=== PATIENT | female | born 1970 | race Caucasian/White ===

== ENCOUNTER 2024-03-12 09:00 | Outpatient (CLI) | payer BC, SELFPAY ==
--- OUTSIDE RECORDS SUMMARY | 2024-03-12 09:06 | XMS_ITS | Patient Health Record ---
Author Organization [facility] Address [address] [place], [place] [address] Care Team Providers Care Molder Bench Name Role Phone None, No PCP Primary Care Provider Unavailabl e Sandy Ring Unavailable [phone] Guerita Will Unavailable [phone] Eleuterio Delgado Unavailable [phone] Allergies No Known Allergies Results Component Value Reference Range Notes Test, Urine Reviewed date:01/04/2024 01:09:07 PM Interpretation: Performing Lab: Notes/Report: Test, Urine negative Negative - TESTOSTERONE, TOTAL, LC/MS/M S Reviewed date:12/25/2023 02:52:16 PM Interpretation: Performing Lab:Keira [facility]-[address] [place] [address], [address] HospitalZzdp[facility]qxjIM[address] Chepe Baron MD,PhD Notes/Report: 0; 0; 0 TESTOSTERONE, TOTAL, MS 162 2-45 ng/dL For additional information, please refer to https://education.[employer]iz[employer].com/faq/TotalTestosteroneLC MSMS (This link is being provided for informational/educational purposes only.) (Note) This test was developed and its analytical performance characteristics have been determined by [facility]. It has not been cleared or approved by the FDA. This assay has been validated pursuant to the CLIA regulations and is used for clinical purposes. F med fusion [address] [address],[address] [facility] [address] hCepe Baron MD, PhD [facility] Reviewed date:12/25/2023 02:52:16 PM Interpretation: Performing Lab:JERAMIE [facility] [id number], [place] HassanArfuCM[address] Anthony Hernandez Notes/Report: 0; 0; 0 FSH 7.1 Reference Range Follicular Phase 2.5-10.2 Mid-cycle Peak 3.1-17.7 Luteal Phase 1.5- 9.1 Postmenopausal 23.0-116.3 ESTRADIOL Reviewed date:12/25/2023 02:52:15 PM Interpretation: Performing Lab:JERAMIE [facility], [place]ht[place] HernandezMpefSS[address] Anthony Hernandez Notes/Report: 0; 0; 0 ESTRADIOL 104 Reference Range Follicular Phase: 19-144 Mid-Cycle: 64-357 Luteal Phase: 56-214 Postmenopausal: < or = 31 Reference range established on post-pubertal patient population. No pre-pubertal reference range established using this assay. For any patients for whom low Estradiol levels are anticipated (e.g. males, pre-pubertal children and hypogonadal/post-menopausal females), the [employer] Estradiol, Ultrasensitive, LCMSMS assay is recommended (order code 46382). Please note: patients being treated with the drug fulvestrant (Faslodex(R)) have demonstrated significant interference in immunoassay methods for estradiol measurement. The cross reactivity could lead to falsely elevated estradiol test results leading to an inappropriate clinical assessment of estrogen status. [facility] order code [id number], Ultrasensitive LC/MS/MS demonstrates negligible cross reactivity with fulvestrant. Test, Urine Reviewed date:10/17/2023 01:49:15 PM Interpretation: Performing Lab: Notes/Report: Test, Urine Negative Negative - TESTOSTERONE, TOTAL, LC/MS/M S Reviewed date:10/16/2023 08:29:03 AM Interpretation: Performing Lab:Z3E, [facility] [address], [address], FuwbgybknxYT[address] Lc Perdomo MD Notes/Report: 0; 0; 0 TESTOSTERONE, TOTAL, MS 65 2-45 ng/dL For additional information, please refer to https://education.Citizinvest[employer].com/faq/TotalTestosteroneLC MSMS (This link is being provided for informational/educational purposes only.) (Note) This test was developed and its analytical performance characteristics have been determined by [facility]. It has not been cleared or approved by the FDA. This assay has been validated pursuant to the CLIA regulations and is used for clinical purposes. EVELIA med fusion [address] [facility] [place] [address],[address] [facility] [address] Lc Perdomo MD FSH Reviewed date:10/16/2023 08:29:03 AM Interpretation: Performing Lab:JERAMIE [employer], [place] HernandezLsddAM[address] Anthony Hernandez Notes/Report: 0; 0; 0 FSH 13.1 Reference Range Follicular Phase 2.5-10.2 Mid-cycle Peak 3.1-17.7 Luteal Phase 1.5- 9.1 Postmenopausal 23.0-116.3 ESTRADIOL Reviewed date:10/16/2023 08:29:02 AM Interpretation: Performing Lab:JERAIME [employer] [facility], [place]htaq HernandezYekbGU[address] Anthony Hernandez Notes/Report: 0; 0; 0 ESTRADIOL 52 Reference Range Follicular Phase: 19-144 Mid-Cycle: 64-357 Luteal Phase: 56-214 Postmenopausal: < or = 31 Reference range established on post-pubertal patient population. No pre-pubertal reference range established using this assay. For any patients for whom low Estradiol levels are anticipated (e.g. males, pre-pubertal children and hypogonadal/post-menopausal females), the [facility] Estradiol, Ultrasensitive, LCMSMS assay is recommended (order code 10926). Please note: patients being treated with the drug fulvestrant (Faslodex(R)) have demonstrated significant interference in immunoassay methods for estradiol measurement. The cross reactivity could lead to falsely elevated estradiol test results leading to an inappropriate clinical assessment of estrogen status. [facility] order code [id number], Ultrasensitive LC/MS/MS demonstrates negligible cross reactivity with fulvestrant. Test, Urine Reviewed date:06/20/2023 12:09:42 PM Interpretation: Performing Lab: Notes/Report: Test, Urine Negative Negative - TESTOSTERONE, TOTAL, LC/MS/M S Reviewed date:06/16/2023 02:09:37 PM Interpretation: Performing Lab:Ramesh [facility]-[address] [facility] [address], [address], RtjlgpyqbbXB[address] Lc Perdomo MD Notes/Report: 0; 0; 0 TESTOSTERONE, TOTAL, MS 136 2-45 ng/dL For additional information, please refer to https://education.Citizinvestor.com/faq/TotalTestosteroneLC MSMS (This link is being provided for informational/educational purposes only.) (Note) This test was developed and its analytical performance characteristics have been determined by [facility]. It has not been cleared or approved by the FDA. This assay has been validated pursuant to the CLIA regulations and is used for clinical purposes. F med fusion [address] [address],[address] [facility] [address] Lc Perdomo MD FSH Reviewed date:06/15/2023 07:17:01 AM Interpretation: Performing Lab:Ghazala [facility]-[address], [place] IfwvHC[address] Anthony Hernandez Notes/Report: 0; 0; 0 FSH 19.0 Reference Range Follicular Phase 2.5-10.2 Mid-cycle Peak 3.1-17.7 Luteal Phase 1.5- 9.1 Postmenopausal 23.0-116.3 ESTRADIOL Reviewed date:06/15/2023 07:17:01 AM Interpretation: Performing Lab:Ghazala [facility], [place] FqhvKV[address] Anthony Hernandez Notes/Report: 0; 0; 0 ESTRADIOL 66 Reference Range Follicular Phase: 19-144 Mid-Cycle: 64-357 Luteal Phase: 56-214 Postmenopausal: < or = 31 Reference range established on post-pubertal patient population. No pre-pubertal reference range established using this assay. For any patients for whom low Estradiol levels are anticipated (e.g. males, pre-pubertal children and hypogonadal/post-menopausal females), the [facility] Estradiol, Ultrasensitive, LCMSMS assay is recommended (order code [id number]). Please note: patients being treated with the drug fulvestrant (Faslodex(R)) have demonstrated significant interference in immunoassay methods for estradiol measurement. The cross reactivity could lead to falsely elevated estradiol test results leading to an inappropriate clinical assessment of estrogen status. [facility] order code [id number], Ultrasensitive LC/MS/MS demonstrates negligible cross reactivity with fulvestrant. Test, Urine Reviewed date:03/28/2023 11:35:42 AM Interpretation:Negative Performing Lab: Notes/Report: Negative Test, Urine Negative Negative - TESTOSTERONE, TOTAL, LC/MS/M S Reviewed date:03/30/2023 12:46:22 PM Interpretation: Performing Lab:Z3E, [facility]-[address] [address], [address] [facility] HospitalYixsbczojcZC[address] Jerrod Souza MD Notes/Report: TESTOSTERONE, TOTAL, MS 139 2-45 ng/dL For additional information, please refer to https://education.[employer]arma/faq/TotalTestosteroneLC MSMS (This link is being provided for informational/educational purposes only.) (Note) This test was developed and its analytical performance characteristics have been determined by [facility]. It has not been cleared or approved by the FDA. This assay has been validated pursuant to the CLIA regulations and is used for clinical purposes. [facility] med fusion [address] [address],[address] [facility] [address] Jerrod Souza MD FSH Reviewed date:03/22/2023 09:18:15 AM Interpretation: Performing Lab:Gh[facility]ala [facility], [place] HassanGgxfLG[address] Anthony Hernandez Notes/Report: FSH 43.0 Reference Range Follicular Phase 2.5-10.2 Mid-cycle Peak 3.1-17.7 Luteal Phase 1.5- 9.1 Postmenopausal 23.0-116.3 ESTRADIOL Reviewed date:03/22/2023 09:18:15 AM Interpretation: Performing Lab:Ghazala [facility], [place] HernandezWmrsID[address] Anthony Hernandez Notes/Report: ESTRADIOL 29 Reference Range Follicular Phase: 19-144 Mid-Cycle: 64-357 Luteal Phase: 56-214 Postmenopausal: < or = 31 Reference range established on post-pubertal patient population. No pre-pubertal reference range established using this assay. For any patients for whom low Estradiol levels are anticipated (e.g. males, pre-pubertal children and hypogonadal/post-menopausal females), the [facility] Estradiol, Ultrasensitive, LCMSMS assay is recommended (order code [id number]). Please note: patients being treated with the drug fulvestrant (Faslodex(R)) have demonstrated significant interference in immunoassay methods for estradiol measurement. The cross reactivity could lead to falsely elevated estradiol test results leading to an inappropriate clinical assessment of estrogen status. [facility] order code [id number], Ultrasensitive LC/MS/MS demonstrates negligible cross reactivity with fulvestrant. Reason For Referral No Information Medications Medication SIG (Take, Route, Frequency, Duration) Notes Start Date End Date Status Vitamin B12 100 MCG as directed Orally Active Naltrexone 380 MG as directed Intramuscular Active Clobetasol Propionate 0.05 % 1 application Externally Twice a day Active Mupirocin Calcium 2 % 1 application Externally Twice a day Active Testosterone Pellets start 01/05/2023 Active Vitamin D 50 MCG (1999) 1 tablet Orally Once a day Active Magnesium 300 MG 1 capsule with a jose l Orally Once a day Active Mirena (52 MG) 20 MCG/DAY as directed Intrauterine 01/2018 Active Social History Tobacco Use: Social History Observation Description Date Details (start date - stop date) Never Smoker NA - NA Tobacco Use/Smoking Question Answer Notes Are you a nonsmoker Alcohol Screen (Audit-C) Question Answer Notes Did you have a drink contain ing alcohol in the past year? Yes How often did you have a dri nk containing alcohol in the past year? 2 to 3 times a week (3 points) How many drinks did you have on a typical day when you were drinking in the past year? 1 or 2 drinks (0 point) How often did you have 6 or more drinks on one occasion in the past year? Never (0 point) Points 3 Interpretation Positive Problems Problem Type SNOMED Code ICD Code Onset Dates Problem Status W/U Status Risk Notes Problem Menopause (087510381) Menopausal and female climacteric states (N95.1) Active confirmed Problem Menopausal and postmenopausal disorders (384274381) Unspecified menopausal and perimenopausal disorder (N95.9) Active confirmed Problem Menopausal and postmenopausal disorders (188566412) Menopausal and perimenopausal disorder (N95.9) Active confirmed Problem Menopausal and postmenopausal disorders (904429102) Menopausal and postmenopausal disorder (N95.9) Active confirmed Problem Encounter for pre-operative laboratory testing (Z01.812) Active confirmed Vital Signs Blood pressure diastolic 64 mm Hg 01/04/2024 Height 60.75 in 01/04/2024 Blood pressure systolic 92 mm Hg 01/04/2024 Weight 147 lbs 01/04/2024 BMI 28 kg/m2 01/04/2024 Encounters Encounter Location Date Provider Diagnosis [facility] [address] [place] [address] 03/21/[address] [facility] Menopausal and postmenopausal disorder N95.9 [facility] [address] [place] [address] 06/13/2023 Guerita Will Menopausal and perimenopausal disorder N95.9 [facility] [address] [place] [address] 10/11/2023 Eleuterio Delgado Menopausal and femal e climacteric states N95.1 [facility] [address] [place] [address] 12/21/2023 Eleuterio Delgado Menopausal and femal e climacteric states N95.[address] [address] 01/04/2024 Eleuterio Delgado Pre-procedural examination Z01.818 and Menopausal and perimenopausal disorder N95.[address] [address] 10/17/2023 Eleuterio Delgado Encounter for pre-operative laboratory testing Z01.812 and Menopausal and perimenopausal disorder N95.[address] [place], [place] [id number] 06/20/2023 Guerita Will Menopausal and femal e climacteric states N95.1 and Encounter for pre-operative laboratory testing Z01.[address] [address] 03/28/[address] [facility] Encounter for pre-operative laboratory testing Z01.812 and Unspecified menopausal and perimenopausal disorder N95.9 Assessments Encounter Date Diagnosis (ICD Code) Assessment Notes Treat ment Notes Treatment Clinical Notes 03/28/2023 Encounter for pre-operative laboratory testing (ICD-10 - Z01.812) 06/13/2023 Menopausal and perimenopausal disorder (ICD-10 - N95.9) 06/20/2023 Menopausal and femal e climacteric states (ICD-10 - N95.1) 06/20/2023 Encounter for pre-operative laboratory testing (ICD-10 - Z01.812) 10/11/2023 Menopausal and femal e climacteric states (ICD-10 - N95.1) 10/17/2023 Menopausal and perimenopausal disorder (ICD-10 - N95.9) 10/17/2023 Encounter for pre-operative laboratory testing (ICD-10 - Z01.812) 12/21/2023 Menopausal and femal e climacteric states (ICD-10 - N95.1) 01/04/2024 Menopausal and perimenopausal disorder (ICD-10 - N95.9) 01/04/2024 Pre-procedural examination (ICD-10 - Z01.818) 03/21/2023 Menopausal and postmenopausal disorder (ICD-10 - N95.9) 03/28/2023 Unspecified menopausal and perimenopausal disorder (ICD-10 - N95.9) Hormone pellets inserted today per patient desires and medical recommendation. After care and follow up instructions were reviewed with patient in great detail. Patient states that all questions have been answered to her satisfaction. 03/28/2023 Other Ice pack x20min, 5 times today Follow up: Labs week of 06/12/2023; Pellet insertion week of 06/19/2023. 06/20/2023 Other Hormone pellets inserted as documented above. Aftercare instructions reviewd in detail. RTC in 3 months for labs (E2, FSH, total testosterone) and 1 week later for repeat insertion. 10/17/2023 Other -HRT pellet inserted as documented above without complication -Post-insertion instructions reviewed. Printed handout with instructions given along with ice pack. Repeat ice to insertion site for 20 min. 3-5 times a day PRN for soreness at insertion site -Report any signs of infection or pellet expulsion -Repeat labs in 3 months (E2, FSH, total testosterone) with next insertion 1 week later -Follow up as needed before next insertion if any concerns 01/04/2024 Other -HRT pellet inserted as documented above without complication -Post-insertion instructions reviewed. Printed handout with instructions given along with ice pack. Repeat ice to insertion site for 20 min. 3-5 times a day PRN for soreness at insertion site -Report any signs of infection or pellet expulsion -Repeat labs in 3 months (E2, FSH, total testosterone) with next insertion 1 week later -Follow up as needed before next insertion if any concerns Plan Of Treatment Next Appt Details Provider Name:Eleuterio Delgado, 03/26/2024 01:15:00 PM, [employer], [place], [address], Provider Name:Eleuterio Delgado, 04/09/2024 01:00:00 PM, [address], [place], [address], Provider Name:Jes Espinal, 04/10/2024 03:45:00 PM, [employer], [place], [address], Insurance Providers Payer Name Payer Address Payer Phone Subscriber Number Group Number Insured Name Patient Relationship to Insured Coverage Start Date Coverage End Date BCBS - (Client Bill) [address] [place] [address] [id number] Courtney Lucas Self - patient is the insured Medical (General) History Medical History History ICD Code Mitral Valve Prolapse Anxiety Hemorrhoids Surgical History Surgery Date(Month/Year) 12/29/1997 [id number] Hospitalization History Reason Date(Month/Year) Child
--- OUTSIDE RECORDS SUMMARY | 2024-03-12 09:06 | XMS_ITS | Clinical Summary ---
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 Atypical moles 01/10/2010 Overview: Sees nurse esthetician for skin checks Immunizations Name Administration Dates Next Due Tdap 01/11/2011 Family History Medical History Relation Name Comments Heart Disease Father [place] age 45 Relation Name Status Comments Father Social History Tobacco Use Types Packs/Day Years Used Date Smoking Tobacco: Former Alcohol Use Standard Drinks/Week Comments No 0 (1 standard drink = 0.6 oz pur e alcohol) Sex and Gender Information Value Date Recorded Sex Assigned at Not on file Gender Identity Not on file Sexual Orientation Not on file Obstetrics History Para Term AB IAB SAB Ectopic Multiple Livin g Live Births 2 2 2 2 2 Date Outcome GA Total Labor Labor/2nd/3rd Weight Sex Type Anes PTL Aliyah A1 A5 Name Clin 1998 Term 39w 0d 4.05 kg (8 lb 15 oz) F CS-LT ranv Alfredo Sanz Delivery Location:[facility] 2000 Term 39w 0d 3.18 kg (7 lb) M CS-LT ranv Alfredo Sanz Delivery Location:[facility] Last Filed Vital Signs Vital Sign Reading Time Taken Comments Blood Pressure 102/62 10/14/2014 9:36 AM YOUTH LIAISON OFFICER Pulse - - Temperature - - Respiratory Rate - - Oxygen Saturation - - Inhaled Oxygen Concentration - - Weight 61.7 kg (136 lb) 10/14/2014 9:36 AM YOUTH LIAISON OFFICER Height 157.5 cm (5' 2.01) 10/14/2014 9:36 AM CS T Body Mass Index 24.87 10/14/2014 9:36 AM YOUTH LIAISON OFFICER Plan of Treatment Health Maintenance Due Date Last Done Comments Depression screening for age 12+ 1981 HIV for age 15-65 1984 BMI (ht and wt on same day) for age 18+ 1987 Hepatitis C screening for age 18-79 1987 Colonoscopy through age 75 2014 Pap test for age 21-65 10/14/2017 5, 10/14/2014, 01/11/2011, Additional history exists Mammogram for age 45-75 02/03/2018 02/04/20 17, 07/01/2016, 10/19/2015, Additional history exists Zoster (shingles) series for age 50+ (1 of 2) 2019 Lipids for age 45-75 10/14/2019 10/14/2014 Tetanus booster 01/11/2021 01/11/2011 COVID-19 vaccine series (2022-24 season) 2023 01/22/2021, 01/01/2021 Influenza for age 50-64 05/12/2024 Tdap Completed 01/11/2011 Pneumococcal series for age 6-64 Aged Out No longer eligible based on patient's age to complete this topic Procedures Procedure Name Priority Date/Time Associated Diagnosis Comments SCAN-MAMMOGRAPHY REPORT 02/03/2017 12:00 AM CDT CONTACT LENS INSPECTOR THIN PREP PAP SCREEN IMAGED Routine 10/14/2014 11:31 AM YOUTH LIAISON OFFICER Screening for malignant neoplasm of the cervix LIPID PANEL Routine 10/14/2014 10:21 AM YOUTH LIAISON OFFICER Screening for lipoid disorders from Last 3 Months or Most Recently Relevant to Health Maintenance Results * SCAN-MAMMOGRAPHY REPORT (02/03/2017 12:00 AM CDT) Anatomical Region Laterality Modality Other Scanner OTHER * CONTACT LENS INSPECTOR THIN PREP PAP SCREEN IMAGED (10/14/2014 11:31 AM YOUTH LIAISON OFFICER) CONTACT LENS INSPECTOR CYTOLOGY See Anatomic Pathology case 10/19/2014 11:39 AM YOUTH LIAISON OFFICER [facility] Specimen (specimen) (Cervical/Vagina l) Non-Blood / Unknown 10/14/2014 11:31 AM YOUTH LIAISON OFFICER 10/14/2014 11:32 AM YOUTH LIAISON OFFICER Reina Sanz MD [facility]OLOG[facility] [address] [place] [address], * LIPID PANEL (10/14/2014 10:21 AM YOUTH LIAISON OFFICER) CHOLESTEROL,TOTAL 164 100 - 199 mg/dL 10/14/2014 2:12 PM YOUTH LIAISON OFFICER [facility] TRIGLYCERIDES 58 <150 mg/dL 10/14/2014 2:12 PM YOUTH LIAISON OFFICER [facility] HDL CHOLESTEROL 74 >40 mg/dL 5 2:12 PM YOUTH LIAISON OFFICER [facility] NON-HDL CHOLESTEROL 90 <145 mg/dl 10/14/2014 2:12 PM YOUTH LIAISON OFFICER [facility] CHOL/HDL RATIO 2.22 <4.50 10/14/2014 2:12 PM YOUTH LIAISON OFFICER [facility] LDL CHOLESTEROL 78 <=130 mg/dL 10/14/2014 2:12 PM YOUTH LIAISON OFFICER [facility] PATIENT STATUS NON-FASTI NG 10/14/2014 2:12 PM YOUTH LIAISON OFFICER [facility] Blood specimen (specimen) BLOOD SPECIMEN / Unknown Venipuncture / Unknown 10/14/2014 10:21 AM YOUTH LIAISON OFFICER 10/14/2014 10:22 AM YOUTH LIAISON OFFICER Reina Sanz MD CHEMISTRY [facility] [address] [place] [address], from Last 3 Months or Most Recently Relevant to Health Maintenance Care Teams Muck Miner Blasting Relationship Specialty Start Date End Date Reina Sanz MD PCP - General 09/25/08
--- OUTSIDE RECORDS SUMMARY | 2024-03-12 09:06 | XMS_ITS | Data Portability ---
Author Organization CASTRO Lopez BLACK OFF WORKER, [id number] Address [address] [place] [phone] Assessment No assessment recorded. Plan of Treatment Reminders Order Date Submit Date Provider Last Modified By Organization Details Last Modified Time Details Appointments None recorded. Lab Pap test, slide(s), cervical 2021 DBA_PATCH _[id number], [address], [place], [address], 3 03:42:33 Referral None recorded. Procedures None recorded. Surgeries None recorded. Imaging None recorded. Medication Orders Vagifem 10 mcg vaginal tablet [address] [id number], [address] [place], [address], 3 18:26:19 Patient TargetsNo targets recorded. Patient Instructions Encounter Date Encounter Id Patient Instructions Last Modified By Organization Details Last Modified Time 05/11/[id number] - Encouraged breast self-awareness and monthly breast exams. - Recommend mammogram annually starting at age 40. - Encouraged regular exercise. - Discussed calcium, vitamin D, and weight bearing exercise for bone health. - Recommend colonoscopy per guidelines. - Reviewed current cervical cancer screening guidelines. - Discussed perimenopause/men opause. WIll IUD and no periods, difficult to know where she is in this process. IUD can be left in place until 01/2025. She has no issues from IUD, will leave in place for now. neo Not available 05/12/2022 08:20:42 06/05/2023 [id number] - Encouraged breast self-awareness and monthly breast exams. - Recommend mammogram annually starting at age 40. - Encouraged regular exercise. - Discussed calcium, vitamin D, and weight bearing exercise for bone health. - Recommend colonoscopy starting at age 45. - Reviewed current cervical cancer screening guidelines. - Discussed menopause and HRT pellets she is using. She will continue fu with [facility] for this. - Discussed Mirena IUD. Patient desires to leave in place until needs removal. Discussed likely no longer needed at this time. She understands. Plan removal 2025. [email or web address] Not available 06/05/2023 18:29:50 Reason for Referral None Reported. Results Created Date Observation Date Name Description Value Unit Range Abnormal Flag LastModifiedBy Organization Detail LastModifiedTime 02/21/20 23 02/20/2023 MAMMO , scree jenae, tomos ynthe sis, bilat eral, w/ CAD No observ ation record ed. [email or web address] [facility] Multimedia Technician [facility] [address] [facility] [address], [place], [address], 02/21/2023 10:29:34 Result Notes None recorded. Problems Name Status Onset Date Resolution Date Notes Provider Name and Address Organization Details Recorded Time Anxiety Active Tisha esquivel, [facility] 05/11/2022 09:38:02 Hemorrhoids Active Tisha Thakurin null, [facility] BLACK OFF WORKER 05/11/2022 09:38:12 Mitral valve prolapse Active Tisha esquivel [facility] [employer] [facility] WORK[employer] 05/11/2022 09:38:24 Mitral valve prolapse syndrome Active Tisha Thakurin null, [facility] BLACK OFF WORKER 05/11/2022 13:55:41 Problem Notes None recorded. Procedures Surgical History Date Name Laterality Status Provider Name and Address Organization Details Recorded Time 02/21/20 23 Date of Last Mammogram completed Eleuterio esquivel [facility] BLACK OFF WORKER 02/21/2023 10:29:40 05/11/20 22 Date of Last Pap Smear completed Maye esquivel [facility] [employer] [employer] 05/25/2022 17:25:09 09/11/19 20 Date of Last [place] [id number] [address] [facility],[address], [place], [address], CASTRO Lopez BL[employer] OFF WORKER 05/11/2022 14:11:09 section completed Not Available [facility] 04/20/2020 01:04:50 Insert intrauterine device completed Not Available [facility] 04/20/2020 01:04:50 Imaging Results Imaging Date Name Status LastModified by Organiz ation Details LastModified Time 02/20/2023 MAMMO, screening, tomosynthe sis, bilateral, w/ CAD completed [email or web address] [facility] Multimedia Technician [facility] [address] [facility] [address], [place], [address], 02/21/2023 10:29:34 Procedure Notes None recorded. Medical Equipment None Reported. Allergies No known drug allergies Medications Name Sig Start Date Stop Date Status Note LastModified by Organization Details LastModified Time amoxicillin 500 mg capsule TAKE 4 CAPSULES BY MOUTH 1 HOUR PRIOR TO DENTAL APPOINTME NT 05/11 completed Not Available Not Available Not Available clobetasol 0.05 % topical cream APPLY TOPICALLY TO RASH TWICE DAILY NEEDED FOR FLARES. active Not Available Not Available No t Available mupirocin 2 % topical ointment APPLY A LIGHT COAT TO AFFECTED AREA(S) EVERY DAY active Not Available Not Available No t Available estradiol 10 mcg vaginal tablet INSERT 1 TABLET VAGINALLY FOR 14 DAYS, THEN 1 TABLET VAGINALLY TWICE WEEKLY AT BEDTIME 06/05 completed Not Available Not Available Not Available naltrexone 4.5 mg capsule 1 capsule every day by oral route. active Not Available Not Available No t Available Vitals Date Recorded Body weight Body mass index (BMI) Body height Systolic blood pressure Diastolic blood pressure Provider Name and Address Organization Details Last Updated DateTime 05/11/2022 30114.19 g 24.9 kg/m2 154.94 cm 112 mm[Hg] 70 mm[Hg] Tisha ERAZO - BLACK OFF WORKER 13:54:29 Date Recorded Body height Body mass index (BMI) Body weight Systolic blood pressure Diastolic blood pressure Provider Name and Address Organization Details Last Updated DateTime 06/05/2023 154.94 cm 26.9 kg/m2 53147.55 g 114 mm[Hg] 76 mm[Hg] Stefanie Wheat CASTRO Lopez BL[employer] OFF WORKER 10:34:16 Social History Question Answer Notes LastModified by Organizat ion Details LastModified Time Tobacco Smoking Status Former Smoker [facility]STRO Hernandez [facility] [employer] OFF WORKER 06/05/2023 08:26:27 What Is Your Level Of Alcohol Consumption? Occasional 4dr/wk Information not available 06/05/2023 What Is Your Level Of Caffeine Consumption? Moderate 1c/day Information not available 06/05/2023 Which Illicit Or Recreational Drugs Have You Used? Denies Illicit Substance Abuse Information not available 06/05/2023 Children's Names/ Michael Sheehan Information not available 06/05/2023 History Of Domestic Violence No Denies All Domestic Violence Information not available 04/20/2020 Spouse/Partners Name Wolfgang Information not available 06/05/2023 What Is Your Relationship Status? Information not available 05/12/2022 Are You Sexually Active? Yes Information not available 05/12/2022 Do You Use Any Illicit Or Recreational Drugs? No Information not available 06/05/2023 Sex: Unknown Functional Status Question Answer Note LastModified by Organizat ion Details LastModified Time What is your exercise level? Heavy Heavy Amount of Exercise (4 or more times weekly) Information not available 04/20/2020 Mental Status None recorded. Family History Relationship Description Onset Age of this Age Resolved Age Notes Father Family history of Cardiovascular disease Heart dis ease Father Hypercholesterolemia Medical History Condition Response GI- Hemorrhoids Y Psych- Anxiety Disorder N Cardiology- Heart Murmur/Mitral Valve Pr olapse Y Dermatology-Other Y Gynecological History Statement/Question Response History of Abnormal PAP N HPV Test Negative Date of Last Mammogram 02/20/2023 History of Cervical Dysplasia N Date of Last Diabetes Screening 09/11/19 20 Sexually Active Y Age at Menarche: 11 Date of Last Colonoscopy 09/11/2019 History of Sexually Transmitted Infectio n N Current Control Method IUD Date of Last Pap Smear 05/11/2022 Date of Last Cholesterol Screening 09/11 Obstetrics History GPAL:G 2 P 2 0 0 2 Type Value Multiple Births 0 Full Term 2 Induced 0 Spontaneous 0 Premature 0 Living 2 Ectopics 0 Total 2 Immunizations Vaccine Type Date Status Provider Name and Address Organization Details Recorded Time Influenza, split virus, trivalent, preservative 06/13/2012 [place] [id number] [address], [place], [address], [facility] BLACK OFF WORKER 05/12/2022 08:12:42 Tdap 01/11/2011 [place] [address] [address], [place], [address], [facility] BLACK OFF WORKER 05/12/2022 08:12:42 Influenza, split virus, trivalent, preservative 06/11/2014 [place] [address] [address] [place] [address], [address], [facility] BLACK OFF WORKER 05/12/2022 08:12:42 COVID-19, mRNA, LNP-S, PF, 30 mcg/0.3 mL dose 01/22/2021 [place] [address] [address], [place], [address], [facility] BLACK OFF WORKER 05/12/2022 08:12:42 Influenza, split virus, trivalent, preservative 07/10/2008 [place] [address] [address], [place], [address], [facility] BLACK OFF WORKER 05/12/2022 08:12:42 COVID-19, mRNA, LNP-S, PF, 30 mcg/0.3 mL dose 01/01/2021 [place] [address] [address], [place], [address], [facility] BLACK OFF WORKER 05/12/2022 08:12:42 Influenza, split virus, quadrivalent, preservative 06/01/2021 [place] [address] [address], [place], [address], [facility] BLACK OFF WORKER 05/12/2022 08:12:42 Influenza, split virus, quadrivalent, preservative 06/02/2020 [place] [address] [address] [facility],[address], [place], [address], [facility] BLACK OFF WORKER 05/12/2022 08:12:42 Influenza, split virus, quadrivalent, PF 09/07/2017 [place] [address] [address] [facility], [place], [address], [facility] BLACK OFF WORKER 05/12/2022 08:12:42 Influenza, split virus, trivalent, preservative 06/19/2013 [place] [address] [address] [facility], [place], [address], [facility] BLACK OFF WORKER 05/12/2022 08:12:42 Influenza, split virus, quadrivalent, preservative 06/11/2018 [place] [address] [address] [facility], [place], [address], [facility] BLACK OFF WORKER 05/12/2022 08:12:42 Influenza, split virus, trivalent, preservative 07/06/2011 [place] [address] [address] [facility],[address], [place], [address], [facility] BLACK OFF WORKER 05/12/2022 08:12:42 Influenza, MDCK, quadrivalent, preservative 05/31/2022 completed Stefanie esquivel, [facility] BLACK OFF WORKER 06/05/2023 10:31:55 Past Encounters Encounter ID Performer Location Encounter Start Date Encounter Closed Date Diagnosis/Indication Diagnosis SNOMED-CT Code [id number] RADHA BURLESON MD [id number] [place] [address] [facility], [address] [place] [address] 05/11/2022 13:44:45 05/12/2022 09:10:28 Gynecologic examination 21089993 Dyspareunia 81526829 Superficia l pain on intercourse 458798196 Deep pain on intercourse 306507528 [id number] RADHA BURLESON MD [id number] [facility] [address] [facility], [address] [place] [address] 06/05/2023 10:24:39 06/06/2023 09:15:01 Gynecologic examination 26676975 Health Concerns Section Related Observation LastModified by Organization Detai ls LastModified Time None Recorded Concern Status LastModified by Organization Details LastModified Time None Recorded Advance Directives Directive None Recorded Payers Encounter Date Sequence Insurance Name Policy Number Policy Villalobos Covered Member ID Villalobos Member ID Guarantor Name 05/11/2022 1 [employer] [id number] Jose Lucas [id number] Courtney Lucas 06/05/2023 1 [place] [id number] Courtney Lucas [id number] Courtney Lucas Notes Date Note Type Note Provider Name and Address Organization Details Recorded Time 05/11/2022 text/html HPI Notes: Annua l Premenopausal ([facility]) Reported by patient. Patient Relationship To Practice: established patient Current Medical History: no active medical problems Menstrual History: Frequency of Menses: none; absent with IUD Contraceptive Method: satisfied: Mirena; placed 01/19/2018 Sexually Active: Yes: ; having issues with pain with IC for the last several years. Feels like something is blocking or needs to be opened Mammogram: up-to-date Pap Smear +/- HPV Cotesting: due Thyroid/Lipid Screening: up-to-date Colonoscopy: [place] [address] [facility],[address], [place], [address], [place] [facility] BLACK OFF WORKER 06/14/2022 14:01:00 06/05/2023 text/html HPI Notes: Annua l Postmenopausal ([facility]) Reported by patient. Patient Relationship To Practice: established patient Current Medical History: no active medical problems Menopausal Symptoms: not present; [facility] HRT: current HRT regimen: continuous; pellets, discussed. Doing well. Vaginal Bleeding: no Sexually Active: Yes: Mammogram: up-to-date Pap Smear +/- HPV Cotesting: up-to-date Thyroid/Lipid Screening: up-to-date; eduar check when last done. If 2020, will plan repeat next year Colonoscopy: up-to-date Bone Density Study: [place] [address] [facility],[address], [place], [address], [place] [facility] BLACK OFF WORKER 06/05/2023 18:30:02 OBGyn Episode Ob Episode Information Episode Created Date Number of Fetuses Patient Bloodtype Patient rh Status Prepregnancy Weight lbs Domestic Partner Domestic Partner Phone Father Name Scorer Single Status 05/11/20 22 1 CLOSED Fetus Data First Name Last Name Admitted to NICU Weight (g) Sex Living Outcome Pediatric Complications Fetus ID Race Codes Race Delivery Type F Full Term [id number] Carlos Calculation Initial Carlos Date Initial Exam Date Initial Exam Provider Initial Ultrasound Date Last Menstrual Period Date Ultra Sound Weeks Gestation 0 Eighteen To Twenty Week Carlos Update Ultra Sound Date Fundal Height At Umbil Quickening Date Ultra Sound Latest Weeks Gestation Final Carlos Confirmed By Final Carlos Confirmed Date Final Carlos Date Ultra Sound Latest Days Gestation 0 0 Menstrual History Last Menstrual Date Menses Monthly On Bcp Conception Prior Menses Frequency Hcg Plus Date Menarche Onset Age Delivery Information Delivery Date Delivery Type Labor Anesthesia Weeks Gestation Incision Type Labor Labor Length Hrs Delivered By Post Complications Tubal Sterilization Discharge Date Comments 8 41 Discharge Information Feeding Method Contraceptive Method Maternal HG B and HCT Levels Ob Episode Information Episode Created Date Number of Fetuses Patient Bloodtype Patient rh Status Prepregnancy Weight lbs Domestic Partner Domestic Partner Phone Father Name Scorer Single Status 05/11/20 22 1 CLOSED Fetus Data First Name Last Name Admitted to NICU Weight (g) Sex Living Outcome Pediatric Complications Fetus ID Race Codes Race Delivery Type M Full Term [id number] Carlos Calculation Initial Carlos Date Initial Exam Date Initial Exam Provider Initial Ultrasound Date Last Menstrual Period Date Ultra Sound Weeks Gestation 0 Eighteen To Twenty Week Carlos Update Ultra Sound Date Fundal Height At Umbil Quickening Date Ultra Sound Latest Weeks Gestation Final Carlos Confirmed By Final Carlos Confirmed Date Final Carlos Date Ultra Sound Latest Days Gestation 0 0 Menstrual History Last Menstrual Date Menses Monthly On Bcp Conception Prior Menses Frequency Hcg Plus Date Menarche Onset Age Delivery Information Delivery Date Delivery Type Labor Anesthesia Weeks Gestation Incision Type Labor Labor Length Hrs Delivered By Post Complications Tubal Sterilization Discharge Date Comments 1 39 Discharge Information Feeding Method Contraceptive Method Maternal HG B and HCT Levels
--- NOTE | 2024-03-12 09:15 | CRLHL7_ITS ---
For Patients: As a result of the Century Cures Act, medical imaging exams and procedure reports are released immediately into your electronic medical record. You may view this report before your referring provider. If you have questions, please contact your health care provider. BILATERAL DIGITAL SCREENING MAMMOGRAM WITH COMPUTER-AIDED DETECTION AND TOMOSYNTHESIS CLINICAL HISTORY: Routine screening exam. COMPARISON: 02/20/2023, 02/11/2022, 01/22/2021, 09/02/2019. TECHNIQUE: Digital mammogram in CC and MLO projections including computer-aided detection (CAD). Tomosynthesis was used in this interpretation. BREAST COMPOSITION: The breasts are heterogeneously dense, which may obscure small masses. FINDINGS: RIGHT Breast: Nodular density within the upper outer quadrant 10 o`clock 8 cm from the nipple, probable lymph node. LEFT Breast: No suspicious findings. IMPRESSION: RIGHT breast asymmetry/mass. RECOMMENDATIONS: Additional mammographic views of the RIGHT breast including 3D spot compression CC/MLO. RIGHT breast ultrasound may also be required. BI-RADS Category 0: Incomplete: Need Additional Imaging Evaluation and/or Prior Mammograms for Comparison The [facility] will contact the patient for follow-up. A lay language report of this examination will be provided to the patient. Dictated by Damian Andino MD @ 03/15/2024 9:58:03 AM j/Dictated by: Damian Andino MD @ 03/15/2024 11:01:00 AM (Electronically Signed)
== END 2024-03-12 09:01 | disposition home or self-care (01) ==
PROVIDERS: PCP Physician Assistant Medical; Visit Provider Nurse Practitioner
DX: Z12.31 Encounter for screening mammogram for malignant neoplasm of breast (principal); N63.10 Unspecified lump in the right breast, unspecified quadrant; R92.2 Inconclusive mammogram
CPT/HCPCS: 77063; 77067

== ENCOUNTER 2024-03-27 07:28 | Outpatient (CLI) | payer BC, SELFPAY ==
--- OUTSIDE RECORDS SUMMARY | 2024-03-27 07:31 | XMS_ITS | Data Portability ---
Author Organization CASTRO Lopez OUTBOUND CALL CENTER REPRESENTATIVE, [id number] Address [address] [place] [id number] Assessment No assessment recorded. Plan of Treatment Reminders Order Date Submit Date Provider Last Modified By Organization Details Last Modified Time Details Appointments None recorded. Lab Pap test, slide(s), cervical 2021 DBA_PATCH _[id number], [address], [place], [address], 3 03:42:33 Referral None recorded. Procedures None recorded. Surgeries None recorded. Imaging None recorded. Medication Orders Vagifem 10 mcg vaginal tablet 2021 022 neo [id number], [address] [place], [address], 3 18:26:19 Patient TargetsNo targets recorded. Patient Instructions Encounter Date Encounter Id Patient Instructions Last Modified By Organization Details Last Modified Time 05/11/[id number] - Encouraged breast self-awareness and monthly breast [...] now. neo Not available 05/12/2022 08:20:42 06/05/2023 [id number] - Encouraged breast self-awareness and monthly breast exams. - Recommend mammogram annually starting at age 40. - Encouraged regular exercise. - Discussed calcium, vitamin D, and weight bearing exercise for bone health. - Recommend colonoscopy starting at age 45. - Reviewed current cervical cancer screening guidelines. - Discussed menopause and HRT pellets she is using. She will continue fu with [facility] for this. - Discussed Mirena IUD. Patient [...] CAD No observ ation record ed. [email or web address] [facility] Title Search Manager [facility] [address] [facility] [address], [place], [address], 02/21/2023 10:29:34 Result Notes None recorded. Problems Name Status Onset Date Resolution Date Notes Provider Name and Address Organization Details Recorded Time Anxiety Active [facility]quivel[facility] OUT[facility] CALL CENTER REPRESENTATIVE 05/11/2022 09:38:02 Hemorrhoids Active Tisha Thakurin null, [facility] OUTBOUND CALL CENTER REPRESENTATIVE 05/11/2022 09:38:12 Mitral valve prolapse Active [facility] CALL CENTER REPRESENTATIVE 05/11/2022 09:38:24 Mitral valve prolapse syndrome Active Tisha Thakurin null, [facility] OUTBOUND CALL CENTER REPRESENTATIVE 05/11/2022 13:55:41 Problem Notes None recorded. Procedures Surgical History Date Name Laterality Status Provider Name and Address Organization Details Recorded Time 02/21/20 23 Date of Last Mammogram completed Eleuterio esquivel [facility] OUTBOUND CALL CENTER REPRESENTATIVE 02/21/2023 10:29:40 05/11/20 22 Date of Last Pap Smear completed [facility]e [facility]quivel [facility] CALL CENTER REPRESENTATIVE 05/25/2022 17:25:09 09/11/19 20 Date of Last [place] [address] [address] [facility],[address], [place], [address], CASTRO Lopez OUTBOUND CALL CENTER REPRESENTATIVE 05/11/2022 14:11:09 section completed Not Available [facility] 04/20/2020 01:04:50 Insert intrauterine device completed Not Available [facility] 04/20/2020 01:04:50 Imaging Results Imaging Date Name Status LastModified by Organiz ation Details LastModified Time 02/20/2023 MAMMO, screening, tomosynthe sis, bilateral, w/ CAD completed [email or web address] [facility] Title Search Manager [facility] [address] [facility] [address], [place], [address], 02/21/2023 10:29:34 Procedure Notes None recorded. Medical [...] Address Organization Details Last Updated DateTime 05/11/2022 49901.19 g 24.9 kg/m2 154.94 cm 112 mm[Hg] 70 mm[Hg] Tisha ERAZO - OUTBOUND CALL CENTER REPRESENTATIVE 13:54:29 Date Recorded Body height Body mass index (BMI) Body weight Systolic blood pressure Diastolic blood pressure Provider Name and Address Organization Details Last Updated DateTime 06/05/2023 154.94 cm 26.9 kg/m2 34724.55 g 114 mm[Hg] 76 mm[Hg] Stefanie ERAZO - OUTBOUND CALL CENTER REPRESENTATIVE 10:34:16 Social History Question Answer Notes LastModified by Organizat ion Details LastModified Time Tobacco Smoking Status Former Smoker CASTRO Hernandez [facility] OUTBOUND CALL CENTER REPRESENTATIVE 06/05/2023 08:26:27 What Is Your Level Of [...] GI- Hemorrhoids Y Psych- Anxiety Disorder N Dermatology-Other Y Cardiology- Heart Murmur/Mitral Valve Pr olapse Y Gynecological History Statement/Question Response History of [...] trivalent, preservative 06/13/2012 [place] [address] [address], [place], [address], [facility] OUTBOUND CALL CENTER REPRESENTATIVE 05/12/2022 08:12:42 Tdap 01/11/2011 [place] [address] [address], [place], [address], [facility] OUTBOUND CALL CENTER REPRESENTATIVE 05/12/2022 08:12:42 Influenza, split virus, trivalent, preservative 06/11/2014 [place] [address] [address] [place] [address], [address], [facility] OUTBOUND CALL CENTER REPRESENTATIVE 05/12/2022 08:12:42 COVID-19, mRNA, LNP-S, PF, 30 mcg/0.3 mL dose 01/22/2021 [place] [address] [address], [place], [address], [facility] OUTBOUND CALL CENTER REPRESENTATIVE 05/12/2022 08:12:42 Influenza, split virus, trivalent, preservative 07/10/2008 [place] [address] [address], [place], [address], [facility] OUTBOUND CALL CENTER REPRESENTATIVE 05/12/2022 08:12:42 COVID-19, mRNA, LNP-S, PF, 30 mcg/0.3 mL dose 01/01/2021 [place] [address] [address], [place], [address], [facility] OUTBOUND CALL CENTER REPRESENTATIVE 05/12/2022 08:12:42 Influenza, split virus, quadrivalent, preservative 06/01/2021 [place] [address] [address], [place], [address], [facility] OUTBOUND CALL CENTER REPRESENTATIVE 05/12/2022 08:12:42 Influenza, split virus, quadrivalent, preservative 06/02/2020 [place] [address] [address] [facility],[address], [place], [address], [facility] OUTBOUND CALL CENTER REPRESENTATIVE 05/12/2022 08:12:42 Influenza, split virus, quadrivalent, PF 09/07/2017 [place] [address] [address] [facility], [place], [address], [facility] OUTBOUND CALL CENTER REPRESENTATIVE 05/12/2022 08:12:42 Influenza, split virus, trivalent, preservative 06/19/2013 [place] [address] [address] [facility],[address], [place], [address], [facility] OUTBOUND CALL CENTER REPRESENTATIVE 05/12/2022 08:12:42 Influenza, split virus, quadrivalent, preservative 06/11/2018 [place] [address] [address] [facility], [place], [address], [facility] OUTBOUND CALL CENTER REPRESENTATIVE 05/12/2022 08:12:42 Influenza, split virus, trivalent, preservative 07/06/2011 [place] [address] [address] [facility], [place], [address], [facility] OUTBOUND CALL CENTER REPRESENTATIVE 05/12/2022 08:12:42 Influenza, MDCK, quadrivalent, preservative 05/31/2022 completed Stefanie esquivel, [facility] OUTBOUND CALL CENTER REPRESENTATIVE 06/05/2023 10:31:55 Past Encounters Encounter ID Performer Location Encounter Start Date Encounter Closed Date Diagnosis/Indication Diagnosis SNOMED-CT Code [id number] RADHA BURLESON MD [id number] [place] [address] [facility], [address] [place] [address] 05/11/2022 13:44:45 05/12/2022 09:10:28 Gynecologic examination [id number] Dyspareunia 71717551 Superficia l pain on intercourse 427104741 Deep pain on intercourse 061682542 [id number] RADHA BURLESON MD [id number] [facility] [address] [facility], [address] [place] [address] 06/05/2023 10:24:39 06/06/2023 09:15:01 Gynecologic examination 94442714 Health Concerns Section Related Observation LastModified by Organization Detai ls LastModified Time None Recorded Concern Status LastModified by Organization Details LastModified Time None Recorded Advance Directives Directive None Recorded Payers Encounter Date Sequence Insurance Name Policy Number Policy Villalobos Covered Member ID Villalobos Member ID Guarantor Name 05/11/2022 1 [place] [id number] Jose Lucas [id number] Courtney Lucas 06/05/2023 1 [place] [id number] Courtney Lucas [id number] Courtney Lucas Notes Date Note Type Note [...] Screening: up-to-date Colonoscopy: [place] [address] [facility],[address], [place], [address], [place] [facility] OUTBOUND CALL CENTER REPRESENTATIVE 06/14/2022 14:01:00 06/05/2023 text/html HPI Notes: Annua l Postmenopausal ([facility]) Reported by patient. Patient Relationship To Practice: established patient Current Medical History: no active medical problems Menopausal Symptoms: not present; using [facility] HRT: current HRT regimen: continuous; pellets, discussed. Doing well. Vaginal Bleeding: no Sexually Active: Yes: Mammogram: up-to-date Pap Smear +/- HPV Cotesting: up-to-date Thyroid/Lipid Screening: up-to-date; eduar check when last done. If 2020, will plan repeat next year Colonoscopy: up-to-date Bone Density Study: [place] [address] [facility],[address], [place], [address], [place] [facility] OUTBOUND CALL CENTER REPRESENTATIVE 06/05/2023 18:30:02 OBGyn Episode Ob Episode Information Episode Created Date Number of Fetuses Patient Bloodtype Patient rh Status Prepregnancy Weight lbs Domestic Partner Domestic Partner Phone Father Name Director Global Strategic Publisher Sales Status 05/11/20 22 1 CLOSED Fetus Data First Name Last Name Admitted to NICU Weight (g) Sex Living Outcome Pediatric Complications Fetus ID Race Codes Race Delivery Type F Full Term [id number] Carlos Calculation Initial Carlos Date Initial Exam [...] Domestic Partner Domestic Partner Phone Father Name Director Global Strategic Publisher Sales Status 05/11/20 22 1 CLOSED Fetus Data First Name Last Name Admitted to NICU Weight (g) Sex Living Outcome Pediatric Complications Fetus ID Race Codes Race Delivery Type M Full Term [id number] Carlos Calculation Initial Carlos Date Initial Exam [...]
--- OUTSIDE RECORDS SUMMARY | 2024-03-27 07:31 | XMS_ITS | Clinical Summary ---
Author Organization [facility] Address [place], [place] [address] Care Team Providers Care Tooth Cutter Contact Wheel Name Role Phone Reina Sanz MD Primary Care Provider + [phone] Allergies No known active allergies Medications Medication [...] 09/19/14 Cholesterol 2009- normal per pt at [facility] Tdap given 2010. Atypical moles 01/10/2010 Overview: Sees divinity professor for skin checks Immunizations Name Administration Dates Next Due Tdap 01/11/2011 Family History Medical History Relation Name Comments Heart Disease Father [place] age 45 Relation Name Status Comments Father [...] oz) F CS-LT ranv Alfredo Sanz Delivery Location:[facility] 2000 Term 39w 0d 3.18 kg (7 lb) M CS-LT ranv Alfredo Sanz Delivery Location:[facility] Last Filed Vital Signs Vital Sign Reading Time Taken Comments Blood Pressure 102/62 10/14/2014 9:36 AM POLYSOMNOGRAPHY TECHNICIAN Pulse - - Temperature - - Respiratory Rate - - Oxygen Saturation - - Inhaled Oxygen Concentration - - Weight 61.7 kg (136 lb) 10/14/2014 9:36 AM POLYSOMNOGRAPHY TECHNICIAN Height 157.5 cm (5' 2.01) 10/14/2014 9:36 AM CS T Body Mass Index 24.87 10/14/2014 9:36 AM POLYSOMNOGRAPHY TECHNICIAN Plan of Treatment Health Maintenance Due Date [...] Comments SCAN-MAMMOGRAPHY REPORT 02/03/2017 12:00 AM CDT WEATHERSTRIP MACHINE OPERATOR THIN PREP PAP SCREEN IMAGED Routine 10/14/2014 11:31 AM POLYSOMNOGRAPHY TECHNICIAN Screening for malignant neoplasm of the cervix LIPID PANEL Routine 10/14/2014 10:21 AM POLYSOMNOGRAPHY TECHNICIAN Screening for lipoid disorders from Last 3 Months or Most Recently Relevant to Health Maintenance Results * SCAN-MAMMOGRAPHY REPORT (02/03/2017 12:00 AM CDT) Anatomical Region Laterality Modality Other Scanner OTHER * WEATHERSTRIP MACHINE OPERATOR THIN PREP PAP SCREEN IMAGED (10/14/2014 11:31 AM POLYSOMNOGRAPHY TECHNICIAN) WEATHERSTRIP MACHINE OPERATOR CYTOLOGY See Anatomic Pathology case 10/19/2014 11:39 AM POLYSOMNOGRAPHY TECHNICIAN [facility] Specimen (specimen) (Cervical/Vagina l) Non-Blood / Unknown 10/14/2014 11:31 AM POLYSOMNOGRAPHY TECHNICIAN 10/14/2014 11:32 AM POLYSOMNOGRAPHY TECHNICIAN Reina Sanz MD PATHOLOGY/[facility]Y [facility] [address] [place] [address], * LIPID PANEL (10/14/2014 10:21 AM POLYSOMNOGRAPHY TECHNICIAN) CHOLESTEROL,TOTAL 164 100 - 199 mg/dL 10/14/2014 2:12 PM POLYSOMNOGRAPHY TECHNICIAN [facility] TRIGLYCERIDES 58 <150 mg/dL 10/14/2014 2:12 PM POLYSOMNOGRAPHY TECHNICIAN [facility] HDL CHOLESTEROL 74 >40 mg/dL 5 2:12 PM POLYSOMNOGRAPHY TECHNICIAN [facility] NON-HDL CHOLESTEROL 90 <145 mg/dl 10/14/2014 2:12 PM POLYSOMNOGRAPHY TECHNICIAN [facility] CHOL/HDL RATIO 2.22 <4.50 10/14/2014 2:12 PM POLYSOMNOGRAPHY TECHNICIAN [facility] LDL CHOLESTEROL 78 <=130 mg/dL 10/14/2014 2:12 PM POLYSOMNOGRAPHY TECHNICIAN [facility] PATIENT STATUS NON-FASTI NG 10/14/2014 2:12 PM POLYSOMNOGRAPHY TECHNICIAN [facility] Blood specimen (specimen) BLOOD SPECIMEN / Unknown Venipuncture / Unknown 10/14/2014 10:21 AM POLYSOMNOGRAPHY TECHNICIAN 10/14/2014 10:22 AM POLYSOMNOGRAPHY TECHNICIAN Reina Sanz MD CHEMISTRY [facility] [address] [place] [address], from Last 3 Months or Most Recently Relevant to Health Maintenance Care Teams Tooth Cutter Contact Wheel Relationship Specialty Start Date End Date Reina Sanz MD PCP - General 09/25/08
--- OUTSIDE RECORDS SUMMARY | 2024-03-27 07:31 | XMS_ITS | Patient Health Record ---
Author Organization [facility] Address [address] [place] [address] Care Team Providers Care Scientific Helper Name Role Phone None, No PCP Primary Care Provider Unavailnasra e Sandy Ring Unavailable [phone] Guerita Will Unavailable [phone] Eleuterio Delgado Unavailable [phone] Allergies No Known Allergies Results Component Value Reference Range Notes TESTOSTERONE, TOTAL, LC/MS/M S (Not yet reviewed by provider) Interpretation: Performing Lab:Z3E, [facility] [address], [address], [place]nZP[address] Chepe Baron MD,PhD Notes/Report: 0; 0; 0 FSH (Not yet reviewed by pro vider) Interpretation: Performing Lab:JERAMIE [facility] [address], [place] TwnlHC[address] Anthony Hernandez Notes/Report: 0; 0; 0 FSH 7.6 Reference Range Follicular Phase 2.5-10.2 Mid-cycle Peak 3.1-17.7 Luteal Phase 1.5- 9.1 Postmenopausal 23.0-116.3 ESTRADIOL (Not yet reviewed by provider) Interpretation: Performing Lab:JERAMIE [facility] [address], [place] IbjzTL[address] Anthony Hernandez Notes/Report: 0; 0; 0 ESTRADIOL 79 Reference Range Follicular Phase: 19-144 Mid-Cycle: 64-357 Luteal Phase: 56-214 Postmenopausal: < or = 31 Reference range established on post-pubertal patient population. No pre-pubertal reference range established using this assay. For any patients for whom low Estradiol levels are anticipated (e.g. males, pre-pubertal children and hypogonadal/post-menopausal females), the [facility] [facility] Estradiol, Ultrasensitive, LCMSMS assay is recommended (order code 43608). Please note: patients being treated with the drug fulvestrant (Faslodex(R)) have demonstrated significant interference in immunoassay methods for estradiol measurement. The cross reactivity could lead to falsely elevated estradiol test results leading to an inappropriate clinical assessment of estrogen status. [facility] [facility] order code 67603-[id number], Ultrasensitive LC/MS/MS demonstrates negligible cross reactivity with fulvestrant. TESTOSTERONE, TOTAL, LC/MS/M S Reviewed date:10/16/2023 08:29:03 AM Interpretation: Performing Lab:John [facility] [address], [address]dhq[facility]evmnJD[address] Lc Perdomo MD Notes/Report: 0; 0; 0 TESTOSTERONE, TOTAL, MS 65 2-45 ng/dL For additional information, please refer to https://education.[employer].Channel M/faq/TotalTestosteroneLC MSMS (This link is being provided for informational/educational purposes only.) (Note) This test was developed and its analytical performance characteristics have been determined by [employer]. It has not been cleared or approved by the FDA. This assay has been validated pursuant to the CLIA regulations and is used for clinical purposes. EVELIA [facility] [address] [address],[address] [facility] [address] Lc Perdomo MD FSH Reviewed date:10/16/2023 08:29:03 AM Interpretation: Performing Lab:Ghazala [facility] [address], [place]jb[place]K[address] Anthony Hernandez Notes/Report: 0; 0; 0 FSH 13.1 Reference Range Follicular Phase 2.5-10.2 Mid-cycle Peak 3.1-17.7 Luteal Phase 1.5- 9.1 Postmenopausal 23.0-116.3 ESTRADIOL Reviewed date:10/16/2023 08:29:02 AM Interpretation: Performing Lab:JERAMIE [facility], [place] GarciasWrpoNJ[address] Anthony Hernandez Notes/Report: 0; 0; 0 ESTRADIOL 52 Reference Range Follicular Phase: 19-144 Mid-Cycle: 64-357 Luteal Phase: 56-214 Postmenopausal: < or = 31 Reference range established on post-pubertal patient population. No pre-pubertal reference range established using this assay. For any patients for whom low Estradiol levels are anticipated (e.g. males, pre-pubertal children and hypogonadal/post-menopausal females), the [employer] [facility] Estradiol, Ultrasensitive, LCMSMS assay is recommended (order code 09827). Please note: patients being treated with the drug fulvestrant (Faslodex(R)) have demonstrated significant interference in immunoassay methods for estradiol measurement. The cross reactivity could lead to falsely elevated estradiol test results leading to an inappropriate clinical assessment of estrogen status. [employer] order code [id number]-Rlleifwzd, Ultrasensitive LC/MS/MS demonstrates negligible cross reactivity with fulvestrant. Test, Urine Reviewed date:01/04/2024 01:09:07 PM Interpretation: Performing Lab: Notes/Report: Test, Urine negative Negative - TESTOSTERONE, TOTAL, LC/MS/M S Reviewed date:12/25/2023 02:52:16 PM Interpretation: Performing Lab:Keira [facility] [address], [address] HospitalDnspwlyhozBQ[address] Chepe Baron MD,PhD Notes/Report: 0; 0; 0 TESTOSTERONE, TOTAL, MS 162 2-45 ng/dL For additional information, please refer to https://education.[employer].com/faq/TotalTestosteroneLC MSMS (This link is being provided for informational/educational purposes only.) (Note) This test was developed and its analytical performance characteristics have been determined by [employer]. It has not been cleared or approved by the FDA. This assay has been validated pursuant to the CLIA regulations and is used for clinical purposes. MD [facility] [address] [facility] [address] [facility] [address] Chepe Baron MD, PhD FSH Reviewed date:12/25/2023 02:52:16 PM Interpretation: Performing Lab:JERAMIE, [facility], [place] HassanLefwRU[address] Anthony Hernandez Notes/Report: 0; 0; 0 FSH 7.1 Reference Range Follicular Phase 2.5-10.2 Mid-cycle Peak 3.1-17.7 Luteal Phase 1.5- 9.1 Postmenopausal 23.0-116.3 ESTRADIOL Reviewed date:12/25/2023 02:52:15 PM Interpretation: Performing Lab:JERAMIE [facility], [place] FyqsNS[address] Anthony Alfaro David Notes/Report: 0; 0; 0 ESTRADIOL 104 Reference Range Follicular Phase: 19-144 Mid-Cycle: 64-357 Luteal Phase: 56-214 Postmenopausal: < or = 31 Reference range established on post-pubertal patient population. No pre-pubertal reference range established using this assay. For any patients for whom low Estradiol levels are anticipated (e.g. males, pre-pubertal children and hypogonadal/post-menopausal females), the [employer] [facility] Estradiol, Ultrasensitive, LCMSMS assay is recommended (order code 60628). Please note: patients being treated with the drug fulvestrant (Faslodex(R)) have demonstrated significant interference in immunoassay methods for estradiol measurement. The cross reactivity could lead to falsely elevated estradiol test results leading to an inappropriate clinical assessment of estrogen status. [facility] order code [id number]-[id number], Ultrasensitive LC/MS/MS demonstrates negligible cross reactivity with fulvestrant. Test, Urine Reviewed date:06/20/2023 12:09:42 PM Interpretation: Performing Lab: Notes/Report: Test, Urine Negative Negative - TESTOSTERONE, TOTAL, LC/MS/M S Reviewed date:06/16/2023 02:09:37 PM Interpretation: Performing Lab:Keira [facility] [address], [address], [place]hieqyjlerHL[address] Lc Perdomo MD Notes/Report: 0; 0; 0 TESTOSTERONE, TOTAL, MS 136 2-45 ng/dL For additional information, please refer to https://education.[employer].com/faq/TotalTestosteroneLC MSMS (This link is being provided for informational/educational purposes only.) (Note) This test was developed and its analytical performance characteristics have been determined by [employer]. It has not been cleared or approved by the FDA. This assay has been validated pursuant to the CLIA regulations and is used for clinical purposes. MDF [facility] [address] [address],[address] [facility] [address] Lc Perdomo MD FSH Reviewed date:06/15/2023 07:17:01 AM Interpretation: Performing Lab:Gh[facility], [place] HernandezGjnhUA[address] Anthony Hernandez Notes/Report: 0; 0; 0 FSH 19.0 Reference Range Follicular Phase 2.5-10.2 Mid-cycle Peak 3.1-17.7 Luteal Phase 1.5- 9.1 Postmenopausal 23.0-116.3 ESTRADIOL Reviewed date:06/15/2023 07:17:01 AM Interpretation: Performing Lab:[facility] [address], [place] HernandezMwwfEQ[address] Anthony Hernandez Notes/Report: 0; 0; 0 ESTRADIOL 66 Reference Range Follicular Phase: 19-144 Mid-Cycle: 64-357 Luteal Phase: 56-214 Postmenopausal: < or = 31 Reference range established on post-pubertal patient population. No pre-pubertal reference range established using this assay. For any patients for whom low Estradiol levels are anticipated (e.g. males, pre-pubertal children and hypogonadal/post-menopausal females), the [employer] [facility] Estradiol, Ultrasensitive, LCMSMS assay is recommended (order code 82033). Please note: patients being treated with the drug fulvestrant (Faslodex(R)) have demonstrated significant interference in immunoassay methods for estradiol measurement. The cross reactivity could lead to falsely elevated estradiol test results leading to an inappropriate clinical assessment of estrogen status. [employer] order code [id number]-Gydiazkhg, Ultrasensitive LC/MS/MS demonstrates negligible cross reactivity with fulvestrant. Test, Urine Reviewed date:10/17/2023 01:49:15 PM Interpretation: Performing Lab: Notes/Report: Test, Urine Negative Negative - Test, Urine Reviewed date:03/28/2023 11:35:42 AM Interpretation:Negative Performing Lab: Notes/Report: Negative Test, Urine Negative Negative - Reason For Referral No Information Medications Medication SIG (Take, Route, Frequency, Duration) Notes Start Date End Date Status Vitamin D 50 MCG (1999) 1 tablet Orally Once a day Active Mirena (52 MG) 20 MCG/DAY as directed Intrauterine 01/2018 Active Mupirocin Calcium 2 % 1 application Externally Twice a day Active Clobetasol Propionate 0.05 % 1 application Externally Twice a day Active Testosterone Pellets start 01/05/2023 Active Magnesium 300 MG 1 capsule with a jose l Orally Once a day Active Naltrexone 380 MG as directed Intramuscular Active Vitamin B12 100 MCG as directed Orally Active Social History Tobacco Use: Social History [...] Status W/U Status Risk Notes Problem Menopause (258931472) Menopausal and female climacteric states (N95.1) Active confirmed Problem Menopausal and postmenopausal disorders (663812407) Unspecified menopausal and perimenopausal disorder (N95.9) Active confirmed Problem Menopausal and postmenopausal disorders (042205221) Menopausal and perimenopausal disorder (N95.9) Active confirmed Problem Menopausal and postmenopausal disorders (737291656) Menopausal and postmenopausal disorder (N95.9) Active confirmed Problem Encounter for pre-operative laboratory testing (Z01.812) Active confirmed Vital Signs Blood pressure diastolic 64 mm Hg 01/04/2024 Height 60.75 in 01/04/2024 Blood pressure systolic 92 mm Hg 01/04/2024 Weight 147 lbs 01/04/2024 BMI 28 kg/m2 01/04/2024 Encounters Encounter Location Date Provider Diagnosis [facility] [address] [place] [address] 03/28/2023 Sandy Ring Encounter for pre-operative laboratory testing Z01.812 and Unspecified menopausal and perimenopausal disorder N95.[address] [place], [place] [id number] 06/20/2023 Guerita Will Menopausal and femal e climacteric states N95.1 and Encounter for pre-operative laboratory testing Z01.812 [facility] [address] [place] [address] 10/17/2023 Eleuterio Delgado Encounter for pre-operative laboratory testing Z01.812 and Menopausal and perimenopausal disorder N95.[address] [address] 01/04/2024 Eleuterio Delgado Pre-procedural examination Z01.818 and Menopausal and perimenopausal disorder N95.9 [facility] [id number] [place] [address] 03/26/2024 Eleuterio Delgado Menopausal and femal e climacteric states N95.1 [facility] [address] [place] [address] 06/13/2023 Guerita Will Menopausal and perimenopausal disorder N95.9 [facility] [address] [place] [address] 10/11/2023 Eleuterio Delgado Menopausal and femal e climacteric states N95.1 [facility] [address] [place] [address] 12/21/2023 Eleuterio Delgado Menopausal and femal e climacteric states N95.1 Assessments Encounter Date Diagnosis (ICD Code) Assessment [...] N95.9) 01/04/2024 Pre-procedural examination (ICD-10 - Z01.818) 03/26/2024 Menopausal and femal e climacteric states (ICD-10 - N95.1) 03/28/2023 Unspecified menopausal and perimenopausal disorder (ICD-10 [...] insertion if any concerns Plan Of Treatment Pending Test Test Name Order Date ESTRADIOL 03/26/2024 FSH 03/26/2024 TESTOSTERONE, TOTAL, LC/MS/MS 03/26/2024 Next Appt Details Provider Name:Eleuterio Delgado, 04/09/2024 01:00:00 PM, [address], [place], [address], Provider Name:Jes V Espinal, 04/10/2024 03:45:00 PM, [address], [place], [address], Insurance Providers Payer Name Payer Address Payer Phone Subscriber Number Group Number Insured Name Patient Relationship to Insured Coverage Start Date Coverage End Date [employer] - (Client Bill) [address] [place] [address] [id number] Courtney Lucas Self - patient is the insured Medical (General) History Medical History History ICD Code Mitral Valve Prolapse Anxiety Hemorrhoids Surgical History Surgery Date(Month/Year) 12/29/1997 [id number] Hospitalization History Reason Date(Month/Year) Child
--- NOTE | 2024-03-27 07:45 | CRLHL7_ITS ---
For Patients: As a result of the Cures Act, medical imaging exams and procedure reports are released immediately into your electronic medical record. You may view this report before your referring provider. If you have questions, please contact your health care provider. DIGITAL DIAGNOSTIC RIGHT MAMMOGRAM USING TOMOSYNTHESIS AND COMPUTER-AIDED DETECTION RIGHT BREAST ULTRASOUND CLINICAL HISTORY: RIGHT breast mass/asymmetry. COMPARISON: 01/22/2021, 02/11/2022, 02/20/2023, 03/12/2024. TECHNIQUE: Digital RIGHT mammogram in two projections with computer-aided detection. Tomosynthesis was used in this interpretation. Real-time ultrasound imaging of RIGHT breast with imaging documentation. BREAST COMPOSITION: The breast is heterogeneously dense, which may obscure small masses. FINDINGS: 3D spot compression CC/MLO RIGHT breast mammogram images submitted. Persistent nodular density in the upper-outer quadrant without architectural distortion. No suspicious calcifications. Targeted RIGHT breast ultrasound performed at 10 o`clock 7 cm from the nipple. Normal intramammary lymph node is present measuring 6 x 4 x 7 millimeters. No suspicious findings. IMPRESSION: Benign intramammary lymph node RIGHT breast 10 o`clock 7 cm from the nipple measuring 6 x 4 x 7 millimeters. No evidence of malignancy. RECOMMENDATIONS: Annual bilateral screening mammography. Results and recommendations discussed with the patient. BI-RADS Category 2: Benign A lay language report of this examination will be provided to the patient. Dictated by Damian Andino MD @ 03/27/2024 8:53:21 AM jj/Dictated by: Damian Andino MD @ 03/27/2024 8:53:00 AM (Electronically Signed)
--- NOTE | 2024-03-27 08:15 | CRLHL7_ITS ---
For Patients: As a result of the Cures Act, medical imaging exams and procedure reports are released immediately into your electronic medical record. You may view this report before your referring provider. If you have questions, please contact your health care provider. PLEASE SEE DIGITAL DIAGNOSTIC RIGHT MAMMOGRAM PERFORMED SAME DAY CRL:janet gonzales/Dictated by: Damian Andino MD @ 03/27/2024 8:53:00 AM (Electronically Signed)
== END 2024-03-27 07:29 | disposition home or self-care (01) ==
LOC: MAMMO 07:29
PROVIDERS: PCP Physician Assistant Medical; Visit Provider Physician Assistant Medical
DX: N63.10 Unspecified lump in the right breast, unspecified quadrant (principal); R92.8 Other abnormal and inconclusive findings on diagnostic imaging of breast
CPT/HCPCS: 76642; 77065; G0279

== ENCOUNTER 2024-08-13 08:10 | Outpatient (CLI) | payer BC, SELFPAY | END 2024-08-13 08:11 | disposition home or self-care (01) | PROVIDERS: PCP Physician Assistant Medical; Visit Provider Physician Assistant Medical | DX: Z13.6 Encounter for screening for cardiovascular disorders (principal); Z13.1 Encounter for screening for diabetes mellitus; Z13.29 Encounter for screening for other suspected endocrine disorder | CPT/HCPCS: 80053; 80061; 84439; 84443 ==

== ENCOUNTER 2025-04-01 10:19 | Outpatient (CLI) | payer BC, SELFPAY ==
--- NOTE | 2025-04-01 10:45 | CRLHL7_ITS ---
For Patients: As a result of the Century Cures Act, medical imaging exams and procedure reports are released immediately into your electronic medical record. You may view this report before your referring provider. If you have questions, please contact your health care provider. BILATERAL DIGITAL SCREENING MAMMOGRAM WITH COMPUTER-AIDED DETECTION AND TOMOSYNTHESIS CLINICAL HISTORY: : Routine screening exam. COMPARISON: Mammograms 03/12/2024, 02/20/2023 and 02/11/2022 TECHNIQUE: Digital mammogram in CC and MLO projections including computer-aided detection (CAD) and tomosynthesis. BREAST COMPOSITION: The breasts are heterogeneously dense, which may obscure small masses. FINDINGS: RIGHT Breast: No suspicious findings. LEFT Breast: There is an asymmetry in the superior breast, middle to posterior depth. IMPRESSION: LEFT breast asymmetry. RECOMMENDATIONS: Additional mammographic views of the LEFT breast including 90 degree lateral and spot compression MLO. LEFT breast ultrasound may also be required. A member of the health care team will contact the patient to schedule the required additional imaging appointment(s). BI-RADS Category 0: Incomplete: Need Additional Imaging Evaluation Dictated by Dorothea Agarwal MD @ 04/03/2025 9:31:48 AM Dictated by: Dorothea Agarwal MD @ 04/03/2025 09:32:00 (Electronically Signed)
== END 2025-04-01 10:20 | disposition home or self-care (01) ==
LOC: MAMMO 10:22
PROVIDERS: Visit Provider Obstetrics & Gynecology
DX: Z12.31 Encounter for screening mammogram for malignant neoplasm of breast (principal); N63.20 Unspecified lump in the left breast, unspecified quadrant; R92.333 Mammographic heterogeneous density, bilateral breasts
CPT/HCPCS: 77063; 77067

== ENCOUNTER 2025-04-16 10:27 | Outpatient (CLI) | payer BC, SELFPAY ==
--- NOTE | 2025-04-16 10:45 | CRLHL7_ITS ---
For Patients: As a result of the Cures Act, medical imaging exams and procedure reports are released immediately into your electronic medical record. You may view this report before your referring provider. If you have questions, please contact your health care provider. LEFT DIAGNOSTIC MAMMOGRAM WITH COMPUTER-AIDED DETECTION AND TOMOSYNTHESIS LEFT BREAST ULTRASOUND CLINICAL HISTORY: LEFT breast mass/asymmetry. COMPARISON: 04/01/2025, 03/27/2024, 03/12/2024. TECHNIQUE: Digital LEFT mammogram in three projections. Computer-aided detection and tomosynthesis were used. Real-time ultrasound imaging of LEFT breast with imaging documentation. Scanning was performed by both the technologist and the radiologist. BREAST COMPOSITION: The breasts are extremely dense, which lowers the sensitivity of mammography. FINDINGS: Additional mammogram images of the LEFT breast demonstrate decreased conspicuity of the previously noted asymmetric density. No architectural distortion or suspicious calcifications. Targeted LEFT breast ultrasound performed. There is a simple anechoic cyst at 2 o`clock, 5 cm from the nipple measuring 4 x 4 x 5 mm. Benign cystic structure also present at 1 o`clock, 5 cm from the nipple, measuring 8 x 4 x 11 mm. IMPRESSION: Benign fibrocystic changes 1 o`clock and 2 o`clock LEFT breast 5 cm from the nipple. No evidence of malignancy. No suspicious findings. RECOMMENDATIONS: Routine screening mammography. A lay language report of this examination will be provided to the patient. BI-RADS Category 2: Benign Dictated by Damian Andino MD @ 04/16/2025 12:52:02 PM /sp SP/Dictated by: Damian Andino MD @ 04/16/2025 12:52:00 PM (Electronically Signed)
--- NOTE | 2025-04-16 11:15 | CRLHL7_ITS ---
For Patients: As a result of the Century Cures Act, medical imaging exams and procedure reports are released immediately into your electronic medical record. You may view this report before your referring provider. If you have questions, please contact your health care provider. PLEASE SEE LEFT BREAST DIAGNOSTIC MAMMOGRAM PERFORMED SAME DAY. CRL:sp SP/Dictated by: Damian Andino MD @ 04/16/2025 12:52:00 PM (Electronically Signed)
== END 2025-04-16 10:28 | disposition home or self-care (01) ==
LOC: MAMMO 10:27
PROVIDERS: Visit Provider Physician Assistant Medical
DX: N63.20 Unspecified lump in the left breast, unspecified quadrant (principal); R92.8 Other abnormal and inconclusive findings on diagnostic imaging of breast
CPT/HCPCS: 76642; 77065; G0279